=== PATIENT | female | born 1935 | race Caucasian/White ===

== ENCOUNTER 2017-08-07 07:03 | Inpatient (IN) | payer MEDICARE ==
[2017-08-07 07:28] LABS: #Eosinphils 0.2 thou/uL (0.0-0.7); #Lymphocytes 1.4 thou/uL (1.20-3.40); #Monocytes 0.5 thou/uL (0.11-0.59); #Neutrophils 4.8 thou/uL (1.40-6.50); %Basophils 0.7 % (0.0-1.0); %Eosinophils 2.4 % (0.0-10.0); %Lymphocytes 19.5 % (21.0-51.0); %Monocytes 7.3 % (0.0-10.0); Hematocrit 39.3 % (36.0-47.0); Mean Platelet Volume 7.7 fL (7.4-10.4); White Blood Cell (WBC) Count 6.9 thou/uL (4.8-10.8)
[2017-08-07 07:39] LABS: Prothrombin Time 15.8 SEC (12.0-14.7)
[2017-08-07 07:40] LABS: ALT (SGPT) 15 U/L (8-55); AST (SGOT) 20 U/L (5-34); Alkaline Phosphatase 35 U/L (40-150); Anion Gap 10 mmol/L (10-20); BUN (Urea Nitrogen) 12 mg/dL (9.8-20.1); Bilirubin, Total 0.5 mg/dL (0.2-1.2); Calc. Creatinine Clearance 0 mL/min (70-130); Calcium 10.3 mg/dL (7.8-10.44); Carbon Dioxide 25 mmol/L (23-31); Chloride 104 mmol/L (98-107); Estimated GFR-MDRD 54; Globulin 3.5 g/dL (2.4-3.5); PTT 40.5 SEC (22.9-36.1); Protein, Total 7.4 g/dL (6.0-8.3)
--- NOTE | 2017-08-07 07:40 | CT ---
CT BRAIN WITHOUT CONTRAST: Date: 08/07/17 HISTORY: Stroke. COMPARISON: None. FINDINGS: There is loss of normal benton-white matter differentiation of the right insula. There is what appears to be expanded right MCA M3 branch with clot within it, series 2, image 14. Old right CORBY territory infarct. No acute hemorrhage. Ventricles are mildly expanded. IMPRESSION: 1. Concern for acute right MCA infarction with likely a small clot within a right M3 branch, series 2, image 14. No hemorrhage. 2. Mild ventriculomegaly, greater than would be expected for the amount of atrophy. 3. Normal pressure hydrocephalus. Dr. Goodwin was notified of the findings via telephone at 0728 hours. CODE CR. POS: FOSTER
[2017-08-07 07:45] LABS: Troponin I Less than 0.010 ng/mL (< 0.028)
[2017-08-07] MEDS ORDERED: Nitroglycerin 50 MG/250 ML BOT 250 ML ONE (07:55)
[2017-08-07] MEDS ORDERED: Nitroglycerin 0.4 MG TAB (25 Tab Bottle) ONE (07:55)
--- NOTE | 2017-08-07 08:22 | CT ---
CT ANGIOGRAM OF NECK WITH CONTRAST CT ANGIOGRAM OF BRAIN WITH CONTRAST CT PERFUSION OF BRAIN: Date: 08/07/17 HISTORY: 82-year-old female who woke up with acute left-sided weakness and facial droop: acute cerebrovascula r accident, stroke. Dr. Santana reported the STAT stroke alert protocol results by telephone to Dr. Goodwin at 0747 hours on 08/07/17. TECHNIQUE: IV contrast bolus injection. Arterial phase scan performed from bottom of dimple to vertex of scalp. Coronal and sagittal 3D MIP reconstructions of neck and head. Additional contrast injection with multiple rapid repeat axial scans through the brain, excluding th e most inferior and most superior portions. Multiple parameters evaluated, including cerebral blood volume, mean transit time, cerebral blood fl ow, and IRF. FINDINGS: There is occlusion of at least one of the M3, sylvian branches of the right middle cerebral artery, which matches the tiny thromboembolus noted on the noncontrast CT performed earlier today. On that earlier CT, there is a small, patchy region of cytotoxic edema in the right insula adjacent to this. There is a moderate to large size region of increased mean transit time at the superior aspect of th e right cerebrum (mostly parietal lobe), with delayed cerebral blood flow. However, the cerebral blood volume is not significantly altered in this portion of the right upper p arietal lobe compared to the contralateral left cerebral hemisphere. Therefore, this represents a la rge area of ischemia that has not yet infarcted. Because the perfusion study does not include the up per portions of the cerebral hemispheres, the true extent of this region of ischemia is unknown. It is estimated that this involves approximately 25% volume of the right MVA territory. Incidentally, there is a moderate to large region of encephalomalacia and gliosis in the right front al lobe, with associated mild ex vacuo dilation of the frontal horn of the right lateral ventricle. There is atherosclerotic plaque, including calcified and noncalcified, and tortuosity, involving mos t of the major arteries of the neck. This includes the brachiocephalic artery, in which there is a s harp, acute angulation due to tortuosity causing approximately 50% stenosis at a hairpin turn, at it s mid point. No high grade stenosis of bilateral common carotid arteries. Mild to moderate stenosis at origin of left internal carotid. No significant stenosis at origin of right internal carotid. No high grade st enosis of vertebral arteries identified. Bilateral posterior communicating arteries are patent. Feta l origin of left posterior cerebral artery. No occlusion or high grade stenosis identified involving carotid siphons or M1 segments of bilateral middle cerebral arteries. There appears to be a single, azygos A2 segment of the anterior cerebral artery supplied mostly by the right A1 segment. This azy gos segment later branches to a bifurcation. The left A1 segment is diminutive. No intracranial aneu rysm is identified. IMPRESSION: 1. Thrombosis of at least one, M3 sylvian branch of the right middle cerebral artery. 2. Moderately large region, at least 25% MCA territory, of potentially salvageable region of right cerebral ischemia, without strong evidence of infarction. 3. Old right MCA territory moderate size infarction in right frontal lobe. CODE CR. POS: CECILE
[2017-08-07] MEDS ORDERED: Aspirin 300 MG Suppository ONE (09:11)
--- NOTE | 2017-08-07 10:10 | HP ---
PRIMARY CARE PHYSICIAN: Kelly Canales M.D. CHIEF COMPLAINT: \\\\"I can't move my left side.\\\\" HISTORY OF PRESENT ILLNESS: Ms. Pepe is a very pleasant 82-year-old female that has a history of h ypertension and hyperlipidemia. She also has a history of a cerebral aneurysm in the past. She say s that she was doing fine yesterday evening and feeling okay and then woke up this morning to try to go to the bathroom. She is not sure what time that was, but noticed that she could not move her le ft side. She lives with her son and she called out to her son that she could not get up. Her son n oticed that she was half on the bed and half off the bed. He knew something was wrong right away an d called 911. When the ambulance arrived, her speech was slurred and she did not have movement of h er left side. She said she could move her knee a little bit, but that was about all. She denies johnston ving any chest pain or shortness of breath. No headaches or dizziness, etc. REVIEW OF SYSTEMS: GENERAL: She has had no fevers, chills, no night sweats. No weight loss. HEEN T: No headaches, no dizziness, no visual changes, no sore throat, no rhinorrhea, neck pain, no shakira opathy. PULMONARY: She does complain of some wheezing, but no cough, no shortness of breath. CARD IOVASCULAR: She denies any chest pain, no PND, no orthopnea. No lower extremity edema. GASTROINTE STINAL: No abdominal pain, no nausea, no vomiting, no change in bowels. GENITOURINARY: No urinary frequency, hematuria, no hesitancy. NEUROLOGIC: As per the history of present illness. She notes inability to move her left side except her knee. She has some movement. No seizures reported. Sh e has had a previous stroke, but her other son stated that it was in the context of being admitted f or the cerebral aneurysm. MUSCULOSKELETAL: No muscle pain, weakness or joint pains. SKIN AND INTE GUMENT: No skin changes. No rash. PSYCHIATRIC: No symptoms of anxiety or depression. PAST MEDICAL HISTORY: Significant for hypertension, hyperlipidemia, diabetes mellitus, cerebral ane urysm, and previous CVA. PAST SURGICAL HISTORY: She has had bilateral tubal ligation, left elbow surgery, and an IVC filter placement. SOCIAL HISTORY: She lives with her son. She is . She drinks 3 beers a night. Denies any t obacco use. FAMILY HISTORY: Significant for diabetes in her uncle. ALLERGIES: No known drug allergies. CURRENT MEDICATIONS: Include metformin 500 mg twice a day, pravastatin 40 mg daily, losartan 50 mg daily, metoprolol extended release 50 mg daily, and omega 3 capsules once a day. PHYSICAL EXAMINATION: GENERAL: She is alert and oriented. She appears to be in some distress due to the acute stroke, bu t she is able to converse with me and is oriented and awake and is breathing comfortably. VITAL SIGNS: Blood pressure was 221/90, heart rate is 66, respiratory rate of 20, and temperature i s 97.8. HEENT: She has a rightward gaze. Her pupils are reactive. Her extraocular muscles are intact. Th roat: There is no erythema, no exudates. NECK: No adenopathy, no bruits. LUNGS: Clear. I did not appreciate any wheezing or rales. CARDIOVASCULAR: She had a normal S1, S2, no S3 or S4. No murmurs, clicks or rubs. ABDOMEN: Soft, it is nontender, nondistended. Positive for bowel sounds. No rebound, no guarding. EXTREMITIES: She has got some trace edema. She has got some mild petechial looking lesions on the lower leg and some chronic venous stasis changes. Neurologic: Neurologically, she has a left facial droop, again rightward gaze. She has got flaccid paralysis of the left upper extremity as well as significant weakness of the left lower extremity; h owever, she is able to move her left leg both against gravity and against to some resistance and was able to dorsiflex her foot. LABORATORY DATA: White blood cell count 6.9, hemoglobin 12.8, hematocrit is 39.3, and platelet coun t is 248. INR is 1.2. Sodium 135, potassium 4.2, chloride is 104, CO2 was 25, BUN of 12, creatinin e 0.98, and glucose is 128. Troponin was less than 0.010. ASSESSMENT AND PLAN: This is a pleasant 82-year-old female that presents with left-sided weakness. The exact onset is unknown. Unfortunately, as the patient had awoken with these symptoms. Therefo re, she was not a candidate for tissue plasminogen activator. She did get a CT perfusion scan which showed that there was some element of the cerebrum, which was at risk. The emergency room physicia n discussed this with Dr. Sykes, he was neon glass bender and felt it was best to continue with aggressive med ical management and would not proceed with embolectomy or thrombectomy. The patient will therefore be admitted to the stroke unit. She will be allowed to have permissive hypertension during the firs t 24 hours and keep her blood pressure around 180s range. She will be given aspirin treatment eithe r rectally and if she passes her swallow test orally, place her on a statin therapy if she is able t o tolerate pills. Monitor her for atrial fibrillation to get an echocardiogram as well as an MRI to assess the extent of the stroke and neurology evaluation in the a.m.
[2017-08-07] MEDS ORDERED: Dextrose 50% Abboject 50 ML SYRINGE SLOW IVP PRN (12:15)
[2017-08-07] MEDS ORDERED: Dextrose 5% in Water 1,000 ML IV PRN (12:15)
[2017-08-07] MEDS ORDERED: HumaLOG 300 UNITS/3 ML VIAL SC PRN ×2 (12:15)
[2017-08-07] MEDS ORDERED: Ondansetron HCl/PF 4 MG/2 ML Vial IVP PRN (12:15)
[2017-08-07 14:20] VITALS: BMI 29.5
[2017-08-07] MEDS ORDERED: FLU VACC TS2017-18 (>65YR) 0.5 ML SYRINGE IM ONE (14:30)
[2017-08-07] MEDS: Sodium Chloride 0.9% 1,000 ML IV SCH (14:59)
[2017-08-07] MEDS ORDERED: cloNIDine 0.1mg/24 Hour PATCH TD SCH (15:00)
[2017-08-07] MEDS ORDERED: ISOVUE-370 76%-LOCM 1 ML ONE (17:01)
--- NOTE | 2017-08-07 20:38 | CON ---
DATE OF CONSULTATION: 08/07/2017 REASON FOR CONSULTATION: Acute onset left hemiparesis and dysarthria REFERRING PROVIDER: Dr. Juan Rivera. HISTORY OF PRESENT ILLNESS: Ms. Pepe is a pleasant 82-year-old female who has been consu lted for evaluation of acute onset of left-sided weakness and dysarthria. History was initially obt ained from ER physician as she had called a stroke alert. According to the ER physician, patient wa s seen normal last night before she went to bed around 8:00 in the evening. This morning when she w kishore up, she was noted to have acute onset of left-sided weakness, left facial droop, and dysarthria. For this reason, she was brought to the [facility]. She had a CT head without cont rast and CT angiogram of the head and neck along with a CT perfusion scan done. CT head without con trast showed no acute intracranial abnormality. It showed old right MCA territory, moderate size in farction in the right frontal lobe. CT angiogram of the head and neck had shown thrombosis of a rig ht MCA at M3 branch. CT perfusion scan had shown moderate size penumbra in the right posterior carlos etal temporal lobe since her last time well known was more than 4-1/2 hours, it was determined that she was medicated for IV tPA. An ER physician had discussed the case with Dr. Sykes who had been no roxanna that the thrombus at distal branch and thus not a candidate for endovascular therapy. Patient c urrently denies any headache, chest pain, palpitation, nausea, vomiting, abdominal pain, or difficul ty with breathing. PAST MEDICAL HISTORY: Significant for hypertension, hyperlipidemia, type 2 diabetes, history of str kishore in 2003 that resulted in left-sided weakness, and history of brain aneurysm. PAST SURGICAL HISTORY: Significant for left elbow surgery and tubal ligation. SOCIAL HISTORY: She denies smoking. She does report of alcohol use on about 3 beers per night. Sh e denies illicit drug use. She is currently living with her son. CURRENT MEDICATIONS: Please review MAR. ALLERGIES: No known drug allergies. FAMILY HISTORY: Noncontributory. REVIEW OF SYSTEMS: As mentioned above in HPI, otherwise negative. PHYSICAL EXAMINATION: VITAL SIGNS: Blood pressure of 196/105, pulse of 68, temperature of 98.5, respirations of 18, O2 sa t is 90% on room air. GENERAL: A well-developed, well-nourished female, in no apparent distress. RESPIRATORY: Clear to auscultation bilaterally. CARDIOVASCULAR: Regular rate and rhythm. NEUROLOGIC: Mental status: The patient is awake, alert, oriented x2. Speech and language: Mild-t o-moderate dysarthric speech noted. Cranial nerves: Pupils are 3 mm and reactive. Visual acevedo a re full to threat bilaterally. Extraocular muscles are intact. There is a gaze preference towards the right side. There is a left facial droop noted. Motor exam showed flaccid left upper and left lower extremity. Strength in the left upper extremity is 0/5, strength in the left lower extremity is 2/5. Sensation is diminished on the left upper and left lower extremity. Babinski: Plantar res ponses extensor on the left and flexion on the right. Gait and Romberg coordination could not be te sted. LABORATORY DATA: Reviewed, which included CBC, sed rate, coagulation panel, CMP, which is significa nt for sodium 135, otherwise unremarkable. IMAGING STUDIES: CT of head without contrast, CT angiogram of the head and neck, and CT perfusion s can were reviewed the findings as noted in HPI. IMPRESSION: 1. Acute right middle cerebral artery distribution ischemic infarct. 2. Malignant hypertension. 3. Left hemiparesis, due to #1. 4. Dysarthria, due to #1. ASSESSMENT AND PLAN: Ms. Pepe is a pleasant 82-year-old female who presented with an acu te onset of left hemiparesis, left facial droop, and dysarthria. She is found to have the right mid dle cerebral artery thrombosis, which is resulting in right middle cerebral artery stroke. She was not a candidate for IV tPA as the last time well known was more than 4-1/2 hours. At this time, I w ould recommend continuing close monitoring or recommend consulting PT, OT, Speech Therapy. She will be n.p.o. until further evaluated by Speech Therapy. I would recommend starting her on aspirin 300 mg suppository until further cleared for oral intake. I would recommend obtaining echocardiogram f or further evaluation. Continue supportive care. Thank you for the consultation.
[2017-08-07] MEDS: Atorvastatin Calcium 40 MG TAB PO SCH (21:06)
[2017-08-07] MEDS: Famotidine/PF 20 mg/2ml Vial SLOW IVP SCH (21:08)
[2017-08-08] MEDS: Sodium Chloride 0.9% 1,000 ML IV SCH ×2 (00:42→15:01)
[2017-08-08 05:16] LABS: #Eosinphils 0.2 thou/uL (0.0-0.7); #Lymphocytes 1.6 thou/uL (1.20-3.40); #Monocytes 0.8 thou/uL (0.11-0.59); #Neutrophils 5.5 thou/uL (1.40-6.50); %Basophils 0.5 % (0.0-1.0); %Eosinophils 2.2 % (0.0-10.0); %Lymphocytes 19.8 % (21.0-51.0); %Monocytes 9.9 % (0.0-10.0); Hematocrit 39.5 % (36.0-47.0); Mean Platelet Volume 7.9 fL (7.4-10.4); Red Blood Cell (RBC) Count 4.04 mill/uL (4.20-5.40); White Blood Cell (WBC) Count 8.1 thou/uL (4.8-10.8)
[2017-08-08 05:35] LABS: Anion Gap 13 mmol/L (10-20); BUN (Urea Nitrogen) 9 mg/dL (9.8-20.1); Calc. Creatinine Clearance 67 mL/min (70-130); Calcium 9.9 mg/dL (7.8-10.44); Carbon Dioxide 21 mmol/L (23-31); Chloride 105 mmol/L (98-107); Cholesterol 196 mg/dl (< 200 Desired); Estimated GFR-MDRD 69; LDL Cholesterol, Calculated 118 mg/dL
[2017-08-08] MEDS: Famotidine/PF 20 mg/2ml Vial SLOW IVP SCH ×2 (09:02→21:58)
[2017-08-08] MEDS: Enoxaparin Sodium 40 MG/0.4 ML SYRINGE SC SCH (09:02)
[2017-08-08] MEDS: Aspirin 300 MG Suppository PR SCH (09:02)
--- NOTE | 2017-08-08 11:52 | PDOC.PN ---
- Subjective Encounter Start Date: 08/08/17 Encounter Start Time: 11:50 Ms. Pepe does not have any complaints. She slept well last night. - Objective MAR Reviewed: Yes Vital Signs & Weight: Vital Signs (12 hours) Temp Pulse Pulse Resp BP BP BP 08/08/17 09:44 89 224/104 H 08/08/17 09:21 68 222/104 H 08/08/17 08:00 98.4 F 89 76 18 203/98 H 207/95 H 08/08/17 04:20 98.1 F 82 18 154/78 H 08/08/17 01:15 80 153/71 H 08/08/17 00:45 71 228/95 H 08/08/17 00:39 228/95 H 08/08/17 00:34 98.3 F 71 18 206/85 H Pulse Ox 08/08/17 09:44 08/08/17 09:21 08/08/17 08:00 92 L 08/08/17 04:20 92 L 08/08/17 01:15 08/08/17 00:45 08/08/17 00:39 08/08/17 00:34 92 L Weight Admit Weight 172 lb 4.8 oz Weight 172 lb 4.8 oz I&O: 08/07/17 08/08/17 08/09/17 06:59 06:59 06:59 Intake Total 1121 Output Total 1 Balance 1121 -1 Result Diagrams: 08/08/17 04:39 08/08/17 04:39 Additional Labs: Accuchecks 08/08/17 08/07/17 00:37 18:19 POC Glucose 102 127 H Phys Exam - Physical Examination HEENT: PERRLA Respiratory: no wheezing, no rales, no rhonchi, clear to auscultation bilateral Cardiovascular: RRR, no significant murmur Gastrointestinal: soft, non-tender, positive bowel sounds Musculoskeletal: no edema Dx/Plan (1) Acute right MCA stroke Code(s): I63.511 - CEREB INFRC D/T UNSP OCCLS OR STENOS OF RIGHT MID CEREB ART Status: Acute (2) Hypertension, uncontrolled Code(s): I10 - ESSENTIAL (PRIMARY) HYPERTENSION Status: Acute (3) Diabetes mellitus type 2 in obese Code(s): E11.69 - TYPE 2 DIABETES MELLITUS WITH OTHER SPECIFIED COMPLICATION; E66.9 - OBESITY, UNSPECIFIED Status: Acute (4) Dyslipidemia Code(s): E78.5 - HYPERLIPIDEMIA, UNSPECIFIED Status: Acute - Plan * Acute MCA CVA- patient continue with Left Hemiparesis, and dysphagia. * Continue rectal aspirin therapy * She is currently being evaluated by Speech therapy * HTN- continue Catapres patch, and Hydralazine as needed * Will add statin when able * DM- blood glucose is stable * MRI results and Echo are pending.
--- NOTE | 2017-08-08 12:12 | MRI ---
BRAIN MRI NONCONTRAST: INDICATION: Stroke. FINDINGS: There is restricted diffusion involving the right frontoparietal cortex and subcortical white matter , with involvement of the mid to posterior right insular cortex. This predominantly involves home comfort advisor ior division of right MCA territory. There is moderate chronic microvascular ischemic disease of th e cerebral white matter with a superimposed area of right frontal encephalomalacia which contains he mosiderin. No mass effect or midline shift. There is a partially empty sella. Bilateral mastoid f luid is present. IMPRESSION: 1. Acute posterior division right middle cerebral artery infarction. 2. Moderate chronic microvascular ischemic disease and superimposed right frontal encephalomalacia with associated hemosiderin staining. POS: FOSTERH
[2017-08-08] MEDS ORDERED: D10W AA 8.5% With Lytes 1000 ML BAG IV SCH (14:15)
--- NOTE | 2017-08-08 15:11 | PDOC.EVN ---
Event Note - Event Note Event Note: I discussed the patient's swallowing study. She did not do well, and a MBS would not add much to decision making. she would like to proceed with a PEG tube.
[2017-08-08] MEDS: Atorvastatin Calcium 40 MG TAB PO SCH (21:58)
--- NOTE | 2017-08-08 23:55 | CON ---
DATE OF CONSULTATION: 08/08/2017 REQUESTING PHYSICIAN: Juan Rivera M.D. REASON FOR CONSULTATION: PEG tube placement. HISTORY OF PRESENT ILLNESS: Mar Pepe is an 82-year-old woman who was admitted to the hospital ye day with an acute ischemic stroke in the right MCA distribution. She had a prior history of a s troke. On this presentation, she woke up yesterday morning with left-sided weakness and dysarthria and was also found to have dysphagia. Imaging has demonstrated right MCA thrombus. She has been tr eated medically with aspirin per rectum. Earlier today, she underwent a swallow evaluation with Spe ech Pathology and was found to have overt aspiration with multiple consistencies and strict n.p.o. s tatus was recommended. The patient has not had any prior abdominal surgeries. She is really not on any anticoagulation. She and her family members have all agreed that they desire PEG placement. REVIEW OF SYSTEMS: Full review of systems including constitutional, head, eyes, ears, nose, throat, GI, , cardiovascular, respiratory, musculoskeletal, and neurologic systems is negative except as noted in the HPI. PAST MEDICAL HISTORY: Hypertension, hyperlipidemia, diabetes, cerebrovascular accident, cerebral an eurysm, bilateral tubal ligation, IVC filter. ALLERGIES: No known drug allergies. OUTPATIENT MEDICATIONS: Metformin, pravastatin, losartan, metoprolol, omega 3. INPATIENT MEDICATIONS: Aspirin 325 mg per rectum daily, clonidine patch, Lovenox 40 mg subcu daily, Pepcid 20 mg IV q. 12 hours, hydralazine p.r.n. FAMILY HISTORY: Significant for diabetes. SOCIAL HISTORY: No smoking. She was previously drinking about 3 beers per night. PHYSICAL EXAMINATION: VITAL SIGNS: Temperature 98.6, pulse 90, blood pressure 168/96, 93% oxygen saturation on room air. GENERAL: An 82-year-old woman lying in bed comfortably in no distress. MENTAL: She is alert and oriented to person and place. Her speech is slurred, but she is able to a nswer questions regarding her symptoms and ask appropriate questions. NEUROLOGIC: She has some left facial droop as well as a left-sided weakness. SKIN: No rash visible or palpable. No jaundice. EYES: No scleral icterus. ENT: Mucous membranes are moist. LYMPH: No submandibular lymphadenopathy. THYROID: Nontender to palpation. HEART: Regular rate and rhythm. LUNGS: Clear to auscultation bilaterally. ABDOMEN: She is overweight. Abdomen is nondistended, bowel sounds are present, soft and nontender to deep palpation throughout. No masses or organomegaly appreciated. No surgical scars appreciated in the left abdomen. EXTREMITIES: No peripheral edema. VESSELS: Radial pulses 2+ bilaterally. LABORATORY STUDIES: WBC 8.1, hemoglobin 12.9, platelets 243. Sodium 135, potassium 4.0, BUN 9, cre atinine 0.80, glucose 108. INR 1.2. ESR 15. IMAGING STUDIES: MRI of the head shows acute right MCA distribution stroke. ASSESSMENT AND PLAN: 1. Oropharyngeal dysphagia following stroke. 2. Acute right middle cerebral artery distribution ischemic stroke. Given the patient's imaging fi ndings as well as her failed swallow exam today, I agree that enteral nutrition via PEG placement is the best option. I had a long discussion with the patient and with her 2 sons regarding PEG placem ent, the associated risks but also benefits of the procedure. The risks would include failure of PE G placement, perforated viscus requiring surgery, infection, bleeding, etc. The patient and her son s desire to proceed. We will schedule PEG placement tomorrow. We will hold her Lovenox tomorrow in anticipation of the procedure. Thank you for the consultation. Please call with questions or concerns.
--- NOTE | 2017-08-09 08:47 | PRG ---
DATE OF SERVICE: 08/08/2017 SUBJECTIVE: Ms. Pepe is a pleasant 82-year-old female admitted with a right MCA stroke. She reports of no significant change in her symptoms since yesterday. She continues to have left-s ided weakness and left facial droop with dysarthria and dysphagia. She denies headache, chest pain, palpitation, lightheadedness or dizziness. PHYSICAL EXAMINATION: VITAL SIGNS: Blood pressure of 168/96, pulse of 90, temperature of 98.6, respirations of 14, O2 sat s of 93% on room air. GENERAL: Well-nourished female in no apparent distress. RESPIRATORY: Clear to auscultation bilaterally. CARDIOVASCULAR: Regular rate and rhythm. NEUROLOGICAL: Mental status: The patient is awake, alert, oriented x3. Speech and language; moder ately dysarthric speech noted. Cranial nerves: Pupils are 2 mm and reactive. Pupils are full to t hreat. Extraocular muscles are intact. There is a left facial droop noted. Motor exam showed flac cedric left upper and left lower extremity. Strength in the left upper extremity is 0/5, strength in t he left lower extremity is 2/5. Sensory: Diminished sensation in the left . LABORATORY DATA: Reviewed, which included CBC, BMP, and lipid profile, which is significant for sod ium 135, total cholesterol 196, LDL of 118, HDL 67, triglycerides of 56, otherwise unremarkable. Ec hocardiogram results were reviewed, which showed EF of 65-70% with no sign of intracardiac mass or t hrombus. IMPRESSION: 1. Large right middle cerebral artery distribution ischemic infarct. 2. Malignant hypertension. 3. Left hemiparesis secondary to #1. ASSESSMENT AND PLAN: Ms. Pepe is a pleasant 82-year-old female who presented with acute onset left hemiparesis, dysarthria, and left facial droop. She is found to have a right MCA distrib ution ischemic infarct. At this time, I would recommend continuing her on aspirin 30 mg suppository for secondary stroke prevention. I agree with having a PEG tube placed as her swallowing may not i mprove for a long duration. I have discussed the findings of the MRI with the patient's son who was present at bedside. I have counseled them on secondary stroke prevention and continuing PT, OT, an d Speech Therapy. She will need inpatient rehab. Thank you for the consultation.
[2017-08-09] MEDS: Aspirin 300 MG Suppository PR SCH (09:21)
[2017-08-09] MEDS: Famotidine/PF 20 mg/2ml Vial SLOW IVP SCH ×2 (09:25→20:46)
[2017-08-09] MEDS ORDERED: Labetalol HCl 100 MG/20 ML VIAL SLOW IVP PRN (10:56)
--- NOTE | 2017-08-09 11:05 | PDOC.PN ---
- Subjective Encounter Start Date: 08/09/17 Encounter Start Time: 11:02 Ms. Pepe does not have any complaints. - Objective MAR Reviewed: Yes Vital Signs & Weight: Vital Signs (12 hours) Temp Pulse Resp BP BP Pulse Ox 08/09/17 08:32 96 221/100 H 08/09/17 07:25 98.5 F 83 16 221/100 H 97 08/09/17 04:00 98.3 F 96 16 174/89 H 92 L 08/09/17 00:28 98.1 F 95 20 166/87 H 95 Weight Admit Weight 172 lb 4.8 oz Weight 172 lb 4.8 oz I&O: 08/08/17 08/09/17 08/10/17 06:59 06:59 06:59 Intake Total 1121 1000 486 Output Total 1 Balance 1121 999 486 Result Diagrams: 08/08/17 04:39 08/08/17 04:39 Additional Labs: Accuchecks 08/09/17 08/09/17 08/08/17 05:46 00:04 21:57 POC Glucose 131 H 117 H 112 H 08/08/17 08/08/17 16:55 11:48 POC Glucose 103 118 H Phys Exam - Physical Examination HEENT: PERRLA Respiratory: no wheezing, no rales, no rhonchi, clear to auscultation bilateral Cardiovascular: RRR, no significant murmur Gastrointestinal: soft, non-tender, positive bowel sounds Musculoskeletal: no edema Dx/Plan (1) Acute right MCA stroke Code(s): I63.511 - CEREB INFRC D/T UNSP OCCLS OR STENOS OF RIGHT MID CEREB ART Status: Acute (2) Hypertension, uncontrolled Code(s): I10 - ESSENTIAL (PRIMARY) HYPERTENSION Status: Acute (3) Diabetes mellitus type 2 in obese Code(s): E11.69 - TYPE 2 DIABETES MELLITUS WITH OTHER SPECIFIED COMPLICATION; E66.9 - OBESITY, UNSPECIFIED Status: Acute (4) Dyslipidemia Code(s): E78.5 - HYPERLIPIDEMIA, UNSPECIFIED Status: Acute - Plan * Acute MCA CVA- continue aspirin rectally, will start a statin, once she has the PEG tube * Dysphagia- she will have PEG tube placed today * HTN- poorly controlled- will add Labetalol PRN, and medications per PEG once placed * Continue PT/OT.
[2017-08-09] MEDS: Labetalol HCl 100 MG/20 ML VIAL SLOW IVP PRN (13:00)
[2017-08-09] MEDS ORDERED: Lidocaine 1% PF 5 ML VIAL ONE (14:09)
[2017-08-09] MEDS ORDERED: Propofol 200 MG/20 ML VIAL ONE (14:09)
[2017-08-09] MEDS ORDERED: Ondansetron HCl/PF 4 MG/2 ML Vial IVP PRN (14:16)
[2017-08-09] MEDS ORDERED: Promethazine HCl 25 MG/ML VIAL SLOW IVP PRN (14:16)
[2017-08-09] MEDS ORDERED: Promethazine HCl 25 MG/ML VIAL IM PRN (14:16)
--- NOTE | 2017-08-09 15:01 | OP ---
DATE OF PROCEDURE: 08/09/2017 PROCEDURE: Esophagogastroduodenoscopy with percutaneous endoscopic gastrostomy tube placement. PREOPERATIVE DIAGNOSIS: Dysphagia secondary to stroke. OPERATIVE NOTE: Informed consent was obtained from the patient. She was sedated with total intrave nous anesthesia. The bite block was placed and the endoscope was advanced easily to the second port ion of the duodenum and retroflexion was performed in the stomach. The esophagus was normal. There was a slight ring at the distal esophagus which was wide open and left alone. The stomach was norm al including retroflexed views. The pylorus and first and second portions of the duodenum were norm al. The stomach was fully insufflated in the appropriate site and left upper quadrant was transillu minated and palpated. The skin was sterilized with chlorhexidine. The patient did receive 2 grams of Ancef prior to the incision. A small skin incision was performed with a scalpel and the catheter was placed directly through the incision into the stomach in one attempt. The wire was placed thro ugh the catheter and grasped with a snare and pulled out through the patient's mouth. The 20-Lebanese gastrostomy tube was then placed by the pull-through technique. There is a rubber internal bumper. The external bumper was placed at 2-2.5 cm. Betadine jelly was applied to the site and the tube w as dressed. Second look endoscopy showed the internal bumper to be in good position. The patient t olerated the procedure well. IMPRESSION: 1. Slight distal esophageal ring which was wide open and left alone. 2. Otherwise normal esophagogastroduodenoscopy. 3. Successful placement of 20-Lebanese gastrostomy tube. RECOMMENDATIONS: Start feeds in 12 hours.
[2017-08-09] MEDS: Sodium Chloride 0.9% 1,000 ML IV SCH (15:05)
[2017-08-09] MEDS: Atorvastatin Calcium 40 MG TAB PO SCH (20:47)
[2017-08-10] MEDS: Labetalol HCl 100 MG/20 ML VIAL SLOW IVP PRN ×2 (00:19→13:58)
[2017-08-10] MEDS: Famotidine/PF 20 mg/2ml Vial SLOW IVP SCH (09:15)
[2017-08-10] MEDS: Enoxaparin Sodium 40 MG/0.4 ML SYRINGE SC SCH (09:15)
[2017-08-10] MEDS: Aspirin 300 MG Suppository PR SCH (09:15)
--- NOTE | 2017-08-10 13:12 | DIS ---
DATE OF ADMISSION: 08/07/2017 DATE OF DISCHARGE: 08/10/2017 DISCHARGE DIAGNOSES: 1. 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 2. 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 3. Essential hypertension. 4. Diabetes mellitus type 2, non-insulin dependent. CONSULTATIONS: 1. Neurology, Dr. Odalys Flores 2. Gastroenterology, Dr. Mahan Case PROCEDURES: 1. Echocardiogram on 08/08/2017. 2. EGD with percutaneous gastrostomy placement on 08/09/2017. HISTORY OF PRESENT ILLNESS: Ms. Pepe is an 82-year-old white female with history of hypertension, diabetes who came in after she was unable to move her left side. In the workup, a CT showed there was decreased perfusion to the right cerebrum. The patient was subsequently admitted to the [facility]. She was not a candidate for t-PA as we did not know the exact onset of her symptoms. HOSPITAL COURSE: The patient was seen and examined by Dr. Rivera in the emergency department and ad mitted. She was allowed to have permissive hypertension overnight. Neurology was consulted and saw her later that evening. He agreed this was likely an ischemic CVA and recommended PT, OT, lipids, and MRI scanning which was ordered. On 08/08/2017 MRI did confirm a large right middle cerebral artery distribution ischemic stroke. Ec hocardiogram was done that was largely unremarkable except for diastolic dysfunction and large chamb ers. There was no evidence of a source of emboli. She was continued on rectal aspirin, and Gastroe nterology was consulted due to her continued dysphagia. Subsequently, they took her to the endoscop y suite on 08/09/2017 and had a percutaneous gastrostomy placed. She has been tolerating her tube feeds well, increasing 10 mL per hour to a goal of Jevity 1.2 at 60 mL per hour. She has been converted to medicines per G-tube and is otherwise medically stable for discharge to inpatient rehab. Nursing is checking on their ability to increase her tube feeds to goal with residual checks, and aw aiting Neurology clearance for discharge as well. We will follow up on her vital signs and her tole angie of her tube feeds. PHYSICAL EXAMINATION: The patient was seen and examined on the date of discharge. DISCHARGE PLAN: Disposition was discussed with the patient face to face at the bedside. DISCHARGE MEDICATIONS: 1. Aspirin 325 mg per tube daily. 2. Lipitor 40 mg per tube at bedtime. 3. Pepcid 20 mg per tube b.i.d. 4. Humalog sliding scale 1 unit for every 50 mg per deciliter greater than 125. 5. Losartan 50 mg per tube daily. 6. Metoprolol tartrate 25 mg per tube b.i.d. 7. [place] 3 fatty acids 1 tablet per tube daily. 8. Metformin 500 mg per tube b.i.d. DISCHARGE CONDITION: Stable. DISPOSITION: The patient will be discharged to [facility] for neurologic rehabilita tion.
[2017-08-10 15:56] VITALS: BP 165/83; TEMP 98.9
[2017-08-10] MEDS ORDERED: Metoprolol Tartrate 25 MG TAB PER TUBE SCH (16:15)
[2017-08-10] MEDS ORDERED: Losartan Potassium 25 MG TAB PER TUBE SCH (16:15)
[2017-08-10] MEDS ORDERED: Famotidine 20 MG TAB PER TUBE SCH ×2 (16:15→21:00)
[2017-08-10] MEDS ORDERED: Aspirin 325 MG TAB PER TUBE SCH (16:15)
[2017-08-10] MEDS ORDERED: Atorvastatin Calcium 40 MG TAB PER TUBE SCH (21:00)
[2017-08-10] MEDS ORDERED: Metoprolol Tartrate 25 MG TAB PO SCH (21:00)
[2017-08-11] MEDS ORDERED: Aspirin 325 MG TAB PER TUBE SCH (09:00)
[2017-08-11] MEDS ORDERED: Losartan Potassium 25 MG TAB PER TUBE SCH (09:00)
--- NOTE | 2017-08-13 12:34 | EKG ---
Test Reason : STROKE SYMPTOMS Blood Pressure : / mmHG Vent. Rate : 064 BPM Atrial Rate : 066 BPM P-R Int : 000 ms QRS Dur : 090 ms QT Int : 422 ms P-R-T Axes : 000 -49 011 degrees QTc Int : 435 ms Normal sinus rhythm Left anterior fascicular block Minimal voltage criteria for LVH, may be normal variant Nonspecific ST abnormality Abnormal ECG Confirmed by GABO LEIVA, KELLY ([id number]), acquisitions editor EDNA CONNOLLY ([id number]) on 08/13/2017 12:34:02 PM Referred By: MASOOD AYON Confirmed By:KELLY AYON MD
== END 2017-08-10 18:15 | DRG 65 ==
LOC: ERS 07:03 → 2SE 13:48 → 2NO 08-08 09:31 → 2SE 08-08 09:41
PROVIDERS: ADMIT Internal Medicine; ATTEND Internal Medicine
PROC: 0DH63UZ Insertion of Feeding Device into Stomach, Percutaneous Approach (ICD-10-PCS; principal; 2017-08-09)
DX: I63.9 Cerebral infarction, unspecified (principal); G81.94 Hemiplegia, unspecified affecting left nondominant side; R13.12 Dysphagia, oropharyngeal phase; E11.9 Type 2 diabetes mellitus without complications; I10 Essential (primary) hypertension; E78.5 Hyperlipidemia, unspecified; H53.47 Heteronymous bilateral field defects; R47.1 Dysarthria and anarthria
CPT/HCPCS: 0042T; 36415; 36416; 70450; 70496; 70498; 70551; 80048; 80053; 80061; 82553; 84484; 85025; 85610; 85652; 85730; 93005; 93306; 96365; 96366; A4216; G8978-GP-CM; G8979-GP-CK; G8987-GO-CM; G8988-GO-CK; G8996-GN-CM; G8996-GN-CN; G8997-GN-CK; G8997-GN-CL; J0360; J1650; J2001; J2704; S0028

== ENCOUNTER 2017-08-17 08:23 | Emergency (ER) | payer MEDICARE ==
--- NOTE | 2017-08-17 09:48 | RAD ---
ABDOMEN ONE VIEW: History: Pulled out PEG tube. FINDINGS/IMPRESSION: The bowel gas pattern is unremarkable. There is an IVC filter. There are degenerative changes of the spine. No suspicious calcifications are seen. 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 There is a lucency through the neck of the left femur. Dedicated hip radiographs are recommended. POS: FOSTER
--- NOTE | 2017-08-17 10:25 | RAD ---
ABDOMEN 1 VIEW: HISTORY: Check PEG tube. FINDINGS/IMPRESSION: There is contrast in the stomach and in the PEG tube. This indicates patency and appropriate positi oning. IVC filter is again seen and the bowel gas pattern is normal. Heterotopic calcification in the hips, left greater than right, is again seen. There is a lucency in the left proximal femur. T his should be evaluated with dedicated hip radiographs. CODE T POS: CECILE
--- NOTE | 2017-08-17 13:24 | RAD ---
SINGLE VIEW OF THE ABDOMEN: HISTORY: Gastrostomy tube check. COMPARISON: 08/17/2017 FINDINGS: A single view of the abdomen shows a nonspecific, nonobstructed bowel gas pattern. Contrast is seen in the stomach and within the patient's gastrostomy tube. No leakage of the contrast from the stom ach is seen. An inferior vena cava filter is seen. Contrast in the right abdomen is from prior contrast examinat ion. IMPRESSION: Gastrostomy tube located in the stomach. POS: CECILE
[2017-08-17] MEDS ORDERED: GASTROGRAFIN 30 ML BOT ONE ×2 (16:17→16:18)
== END 2017-08-17 13:01 | disposition home or self-care (01) ==
LOC: ERS 08:23
DX: K94.23 Gastrostomy malfunction (principal); E11.9 Type 2 diabetes mellitus without complications; I10 Essential (primary) hypertension; Z86.73 Personal history of transient ischemic attack (TIA), and cerebral infarction without residual deficits; Z79.4 Long term (current) use of insulin; Z79.899 Other long term (current) drug therapy; Z79.82 Long term (current) use of aspirin
CPT/HCPCS: 43760; 74000